=== PATIENT | male | born 1970 | race Caucasian/White ===

== ENCOUNTER 2021-03-15 02:04 | Emergency (ER) | payer OTHER, SELFPAY ==
[2021-03-15 02:14] VITALS: BP 143/83; PULSE 96; RESP 15; TEMP 36.4; O2SAT 99; BMI 25.1
--- NOTE | 2021-03-15 02:20 | ED.GENADULT ---
HPI - General Adult General Chief complaint: Urogenital-Male Stated complaint: Lump on right testicle with pain Time Seen by Provider: 03/15/21 02:08 Source: patient Mode of arrival: Ambulatory Limitations: no limitations History of Present Illness HPI narrative: Patient is a 50-year-old male here for evaluation of pain and a lump on his right testicle. He states that he is urinating frequently but feels like he is emptying his bladder and does not have any dysuria. He denies any concern for sexually transmitted diseases. No prior history of sexually transmitted diseases. No trauma. No vomiting. No fevers. Has not tried anything for symptoms prior to arrival. Related Data Allergies Allergy/AdvReac Type Severity Reaction Status Date / Time No Known Drug Allergies Allergy Verified 03/15/21 02:14 Review of Systems Constitutional Constitutional: Denies fever(s) Cardiovascular Cardiovascular: Reports system reviewed and no additional complaints, except as documented Respiratory Respiratory: Reports system reviewed and no additional complaints, except as documented Gastrointestinal Gastrointestinal: Reports system reviewed and no additional complaints, except as documented Genitourinary Genitourinary: Reports as per HPI Musculoskeletal Musculoskeletal: Reports system reviewed and no additional complaints, except as documented Integumentary/Breasts Skin/Breast: Reports system reviewed and no additional complaints, except as documented Neurologic Neurologic: Reports system reviewed and no additional complaints, except as documented Hematologic/Lymphatic On Anticoagulants: No Allergic/Immunologic Allergic/Immunologic: Reports system reviewed and no additional complaints, except as documented Patient History Medical History Urinary frequency Social History Smoking Status: Never smoker Smoking Status: Never smoker Substance Use Type: does not use Exam Initial Vital Signs Initial Vital Signs: Vital Signs Temperature 97.6 F 03/15/21 02:14 Pulse Rate 96 H 03/15/21 02:14 Respiratory Rate 15 03/15/21 02:14 Blood Pressure 143/83 H 03/15/21 02:14 Pulse Oximetry 99 03/15/21 02:14 Const General: cooperative and comfortable HENMT Head: normal to inspection and normocephalic GI Inspection: normal to inspection Palpation: soft Other: Patient is circumcised. Penis is unremarkable. Patient does have what appears to be swelling of his scrotum for right side being worse than the left. Does have tenderness to palpation of the testicles. Skin General: no rashes or lesions noted Neuro General: patient alert, patient awake and patient oriented x3 Extrem General: normal to inspection and capillary refill normal Psych Appearance: grossly normal and well kempt Course Orders Ordered: ED Orders 03/15/21 02:21 US scrotum Stat 03/15/21 02:44 Urine Microscopic Stat Vital Signs Vital signs: Vital Signs - 8 hr 03/15/21 02:14 Temperature 97.6 F Pulse Rate 96 H Respiratory Rate 15 Blood Pressure 143/83 H Pulse Oximetry 99 Medical Decision Making Lab Data Labs: Lab Results 03/15/21 Range/Units 02:44 Urine RBC 1-5/hpf (0-5/HPF) Urine WBC None seen (0-5/HPF) Urine Bacteria None seen (None) Ur Culture Indicated? Cult not indicated Urine Dip Bedside Urine Glucose Negative Bedside Urine Bilirubin - Negative Bedside Urine Ketone - Negative Urine Specific [place] 1.020 Bedside Urine Occult Blood ++ Bedside Urine pH 6 Bedside Urine Protein - Negative Bedside Urine Urobilinogen - Negative Bedside Urine Nitrite - Negative Bedside Urine Leukocytes - Negative Esterase Point of care testing: Urine Dip Bedside Urine Glucose Negative Bedside Urine Bilirubin - Negative Bedside Urine Ketone - Negative Urine Specific [place] 1.020 Bedside Urine Occult Blood ++ Bedside Urine pH 6 Bedside Urine Protein - Negative Bedside Urine Urobilinogen - Negative Bedside Urine Nitrite - Negative Bedside Urine Leukocytes - Negative Esterase Imaging Data Scrotal ultrasound: Radiologist's Impression: No testicular torsion Right epididymo-orchitis with complex hydrocele within the right hemiscrotum MDM Narrative Medical decision making narrative: Patient with ultrasound showing no testicular torsion. Has epididymitis and orchitis on the right. This is consistent with his presentation. He denies any concern for sexually transmitted diseases. Hold on any antibiotics for now given his age. We did discuss conservative measures to include anti-inflammatories. He is given return precautions. Expressed understanding and agreement. Discharge Plan Departure Patient Disposition: Home Clinical Impression: Epididymitis, Orchitis, Hydrocele Instructions: DI for Epididymitis, DI for Hydrocele-Adult, DI for Orchitis Activity Restrictions/Additional Instructions: The findings on the ultrasound today do show a inflammation of the structures in the right side of the scrotum to include the epididymis and also the testicle. You also have a hydrocele on the right. I recommend that you use anti-inflammatories for the next several days. Also use supportive clothing. You can also ice the area. Contact your primary provider for follow-up. Return to the emergency department for any new or worsening symptoms
--- NOTE | 2021-03-15 02:21 | DI.US.S_ITS ---
PROCEDURE: US SCROTUM INDICATIONS: Right-sided testicular pain TECHNIQUE: Real-time scanning was performed of the scrotum and testicles, with image documentation. Color and pulse Doppler interrogation was performed of both testicles. COMPARISON: None. FINDINGS: Right: Testicle is normal in size at 4.6 x 3.7 x 2.8 cm, and homogenous in echotexture. Epididymis is prominent in size. There is a septated right-sided hydrocele. No varicoceles. The right scrotal wall is thickened to 8 mm. Left: Testicle is normal in size at 2.6 x 2.9 x 2.4 cm, and demonstrates a 4 mm simple cyst. Epididymis demonstrates multiple simple appearing cysts, with the largest measuring up to 3 mm. There is a trace left-sided hydrocele. No varicoceles. Overlying scrotal skin is normal in thickness. Doppler: Increased vascular flow can be seen within the right testicle. Normal appearing arterial flow is confirmed within the left testicle. IMPRESSION: These imaging findings are most compatible with right-sided epididymo-orchitis, with a prominent, hypervascular epididymis and hypervascular testicle, with an associated right-sided hydrocele. Note: No significant discrepancy from the preliminary report. Dictated by: Kulwinder Gore M.D. on 03/15/2021 at 7:04 Approved by: Kulwinder Gore M.D. on 03/15/2021 at 7:07
[2021-03-15 02:52] LABS: Bacteria Urine None Seen; WBC Urine None Seen (0-5/HPF)
[2021-03-15 02:59] LABS: RBC Urine 1-5/HPF (0-5/HPF)
[2021-03-15 03:00] LABS: Culture Indicated Urine Cult Not Indicated
[2021-03-15] MEDS: IBUPROFEN 400 MG TABLET 800 MG PO (04:38)
[2021-03-15 04:39] VITALS: BP 144/85; PULSE 79; RESP 16; O2SAT 96
== END 2021-03-15 04:42 | disposition home or self-care (01) ==
PROVIDERS: Emergency Provider Emergency Medicine
DX: N45.1 Epididymitis (principal); N45.2 Orchitis; N43.3 Hydrocele, unspecified
CPT/HCPCS: 76870; 81003; 81015; 99283